=== PATIENT | female | born 1940 | race Caucasian/White ===

== ENCOUNTER 2021-06-02 10:39 | Outpatient (CLI) | payer MEDICARE, BC ==
[2021-06-02] MEDS ORDERED: LATA7.5D EACHEYE (12:06)
[2021-06-02] MEDS ORDERED: POTA99TA19 PO (12:06)
[2021-06-02] MEDS ORDERED: LOVA20TA2 PO (12:06)
[2021-06-02] MEDS ORDERED: TIMO1DRO2 EACHEYE (12:06)
== END 2021-06-02 23:59 | disposition home or self-care (01) ==
LOC: STAR 10:39
PROVIDERS: ATTEND Orthopaedic Surgery Hand Surgery
DX: Z02.9 Encounter for administrative examinations, unspecified (principal)

== ENCOUNTER 2021-06-08 07:34 | Day surgery (SDC) | payer MEDICARE, BC ==
[~2021-06-08] VITALS: Ht 160 cm; Wt 58.5 kg
[~2021-06-08 07:34] MED LIST: LATA7.5D EACHEYE; LOVA20TA2 PO; POTA99TA19 PO; TIMO1DRO2 EACHEYE
[2021-06-08] MEDS ORDERED: CHLORHEXIDINE 15 ML UDC PO ONE (08:00)
[2021-06-08] MEDS ORDERED: LACTATED RINGERS 1,000 ML IV SCH (08:00)
[2021-06-08 08:05] VITALS: BP 166/121
[2021-06-08] MEDS ORDERED: CHLORHEXIDINE 15 ML UDC ONE (08:15)
[2021-06-08] MEDS ORDERED: CEFAZOLIN 1,000 MG ONE (09:06)
[2021-06-08] MEDS ORDERED: DEXAMETHASONE 4 MG/ML, 1ML ONE (09:06)
[2021-06-08] MEDS ORDERED: PROPOFOL 10 MG/ML, 20ML ONE (09:06)
[2021-06-08] MEDS ORDERED: ONDANSETRON 2MG/ML, 2ML ONE (09:06)
[2021-06-08] MEDS ORDERED: FENTANYL PF 250 MCG/5ML ONE (09:06)
[2021-06-08] MEDS ORDERED: BUPIVACAINE/PF 0.5% ONE (09:42)
[2021-06-08] MEDS ORDERED: MEPERIDINE/PF 25MG/0.5ML IVPush PRN (10:00)
[2021-06-08] MEDS ORDERED: hydrALAzine 20 MG/ML, 1ML IV PRN (10:00)
[2021-06-08] MEDS ORDERED: PROMETHAZINE 25 MG/ML, 1ML IVPush PRN (10:00)
[2021-06-08] MEDS ORDERED: HALOPERIDOL 5 MG/ML IV PRN (10:00)
[2021-06-08] MEDS ORDERED: OXYcodone 5 MG/5 ML ORAL.SOL UDC PO PRN (10:00)
[2021-06-08] MEDS ORDERED: ACETAMINOPHEN 325 MG TABLET PO PRN (10:00)
[2021-06-08] MEDS ORDERED: morphine SULFATE 10 MG/ML, 1ML IVPush PRN (10:00)
[2021-06-08] MEDS ORDERED: HYDROmorphone 1 MG/ML, 1ML INJ IVPush PRN (10:00)
[2021-06-08] MEDS ORDERED: FENTANYL PF 100 MCG/2ML IV PRN (10:00)
[2021-06-08] MEDS ORDERED: hydrALAzine 20 MG/ML, 1ML ONE (10:20)
[2021-06-08] MEDS ORDERED: ACETAMINOPHEN 650 MG/20.3 ML UDC ONE (12:17)
[2021-06-08] MEDS ORDERED: LABETALOL 5MG/ML, 20ML ONE (12:17)
[2021-06-08] MEDS: LABETALOL 5MG/ML, 20ML IV PRN ×2 (12:24→12:41)
[2021-06-08] MEDS ORDERED: PROMETHAZINE 25 MG/ML, 1ML ONE (12:50)
== END 2021-06-08 14:35 | disposition home or self-care (01) ==
LOC: OUT 07:34
PROVIDERS: ATTEND Orthopaedic Surgery Hand Surgery
DX: M18.11 Unilateral primary osteoarthritis of first carpometacarpal joint, right hand (principal); M19.041 Primary osteoarthritis, right hand; M25.741 Osteophyte, right hand; I10 Essential (primary) hypertension; H40.9 Unspecified glaucoma; Z79.899 Other long term (current) drug therapy; Z88.5 Allergy status to narcotic agent; Z88.8 Allergy status to other drugs, medicaments and biological substances
CPT/HCPCS: 25310; 25447; 26860; 73140; C1713; J0360; J0690; J1100; J2405; J2550; J2704; J3010; J7120; 76000